=== PATIENT | female | born 1985 | race Caucasian/White ===

== ENCOUNTER → 2017-03-30 | Day surgery (SDC) | payer OTHER ==
[~2017-03-30] MED LIST: LACTATED RINGER'S 1000 ML INJ 1,000 ML ONE; PROPOFOL 200 MG/20 ML AMP IV ONE
--- NOTE | 2017-03-30 11:00 | GIPROC ---
[facility] [address] [facility] [place], [address] EGD PROCEDURE REPORT EXAM DATE: 03/30/2017 PATIENT NAME: Isamar Sim MR #: [id number] BIRTHDATE: 1985 ATTENDING: Ganesh Hammond MD ORDER #: [id number] [employer] DIRECTOR: Temitope Acevedo RN STATUS: outpatient INDICATIONS: The patient is a 32 yr old female here for an EGD due to Preoperative assessment PROCEDURE PERFORMED: EGD w/ biopsy MEDICATIONS: None, Per Anesthesia, None, and Per Anesthesia. TOPICAL ANESTHETIC: CONSENT: The patient understands the risks and benefits of the procedure and understands that these risks include, but are not limited to: sedation, allergic reaction, infection, perforation and/or bleeding. Alternative means of evaluation and treatment include, among others: physical exam, x-rays, and/or surgical intervention. The patient elects to proceed with this endoscopic procedure. medical equipment was checked for proper function. Hand hygiene and appropriate measures for infection prevention was taken. After the risks, benefits and alternatives of the procedure were thoroughly explained, Informed consent was verified, confirmed and timeout was successfully executed by the treatment team. The patient was anesthetized with topical anesthesia and the EG-[id number] ([id number]) endoscope was introduced through the mouth and advanced to the second portion of the duodenum. Retroflexed views revealed no abnormalities The gastroscope was then slowly withdrawn and removed. ESOPHAGUS: There was LA Class B esophagitis noted. Multiple biopsies were performed. The endoscopy was otherwise normal. STOMACH: There was mild gastritis in the gastric antrum. Multiple biopsies were performed. ADVERSE EVENTS: There were no complications. IMPRESSIONS: 1. There was LA Class B esophagitis noted; multiple biopsies were performed 2. Normal endoscopy otherwise 3. There was mild gastritis in the gastric antrum; multiple biopsies were performed 4. Retroflexed views revealed no abnormalities RECOMMENDATIONS: 1. Await biopsy results. Biopsy results will not be ready for 7-10 days. If you don't hear from us in two weeks, call our office for biopsy results. 2. Anti-reflux regimen 3. Follow-up: GI clinic 3 week(s) 4. Protonix 40mg Q AM PATIENT CONDITION: stable DISPOSITION: Home REPEAT EXAM: Return 2 months EGD Ganesh Hammond MD eSigned: Ganesh Hammond MD 03/30/2017 11:00 AM cc: Constantin Mcpherson M.D.
== END | disposition home or self-care (01) ==
LOC: ESDC 09:23
PROVIDERS: ATTEND Internal Medicine Gastroenterology
DX: K20.9 Esophagitis, unspecified (principal); K29.70 Gastritis, unspecified, without bleeding
CPT/HCPCS: 00731; 43239; 88305; 88312; J3010; J7120

== ENCOUNTER → 2017-04-07 | Outpatient (CLI) | payer OTHER ==
--- NOTE | 2017-04-09 10:02 | RSPPFT ---
DATE OF PROCEDURE: 04/07/17 COMMENTS: Spirometry shows FVC of 3.3 at 97% of predicted, FEV1 of 2.7 at 94%, FEV1/FVC ratio is normal. Flow is normal at FEF 25, FEF 50, FEF 75 and FEF 25-75. There is no response after bronchodilator treatment. Lung volumes show residual volume is increased. TLC is normal. Diffusion capacity is normal. Flow volume loop indicates a normal pattern. IMPRESSION: 1. Normal spirometry. 2. No response after bronchodilator treatment. 3. Lung volumes show mild hyperinflation. 4. Diffusion capacity is normal.
== END ==
LOC: PHRSP 07:32
PROVIDERS: ATTEND Specialist
DX: J44.9 Chronic obstructive pulmonary disease, unspecified (principal); R06.00 Dyspnea, unspecified; R09.02 Hypoxemia; Z01.818 Encounter for other preprocedural examination
CPT/HCPCS: 94060; 94726; 94729

== ENCOUNTER → 2017-07-08 | Day surgery (SDC) | payer OTHER ==
[~2017-07-08] MED LIST changes: -PROPOFOL 200 MG/20 ML AMP IV ONE; +PROPOFOL 500 MG/50 ML BTL IV ONE
--- NOTE | 2017-07-08 09:48 | GIPROC ---
[facility] [address] [facility], [address] EGD PROCEDURE REPORT EXAM DATE: 07/08/2017 PATIENT NAME: Isamar Sim MR #: [id number] BIRTHDATE: 1985 ATTENDING: Ganesh Hammond MD ORDER #: [id number] [employer]NIFE MACHINE CUTTER: Hilary Tipton RN STATUS: outpatient INDICATIONS: The patient is a 32 yr old female here for an EGD due to follow up of reflux esophagitis PROCEDURE PERFORMED: EGD w/ biopsy MEDICATIONS: None and Per Anesthesia. TOPICAL ANESTHETIC: CONSENT: The patient understands the risks and benefits of the procedure and understands that these risks include, but are not limited to: sedation, allergic reaction, infection, perforation and/or bleeding. Alternative means of evaluation and treatment include, among others: physical exam, x-rays, and/or surgical intervention. The patient elects to proceed with this endoscopic procedure. medical equipment was checked for proper function. Hand hygiene and appropriate measures for infection prevention was taken. After the risks, benefits and alternatives of the procedure were thoroughly explained, Informed consent was verified, confirmed and timeout was successfully executed by the treatment team. The patient was anesthetized with topical anesthesia and the EG-[id number] ([id number]) endoscope was introduced through the mouth and advanced to the second portion of the duodenum. Retroflexed views revealed no abnormalities The gastroscope was then slowly withdrawn and removed. ESOPHAGUS: Irregular Z line this was biopsied. STOMACH: There was erythematous moderate and erosive gastritis in the gastric antrum. Multiple biopsies were performed. The endoscopy was otherwise normal. ADVERSE EVENTS: There were no complications. IMPRESSIONS: 1. Irregular Z line this was biopsied 2. There was erythematous gastritis in the gastric antrum; multiple biopsies were performed 3. Normal endoscopy otherwise 4. Retroflexed views revealed no abnormalities RECOMMENDATIONS: 1. Await biopsy results. Biopsy results will not be ready for 7-10 days. If you don't hear from us in two weeks, call our office for biopsy results. 2. Increase pantoprazole to BID 3. Follow-up: GI clinic 3 week(s) PATIENT CONDITION: stable DISPOSITION: Home REPEAT EXAM: Ganesh Hammond MD eSigned: Ganesh Hammond MD 07/08/2017 9:47 AM cc: Constantin Mcpherson M.D.
== END | disposition home or self-care (01) ==
LOC: ESDC 07:02
PROVIDERS: ATTEND Internal Medicine Gastroenterology
DX: K21.9 Gastro-esophageal reflux disease without esophagitis (principal); K22.9 Disease of esophagus, unspecified; K29.70 Gastritis, unspecified, without bleeding
CPT/HCPCS: 00731; 43239; 88305; 88312; J3010; J7120